=== PATIENT | female | born 1985 | race Caucasian/White ===

== ENCOUNTER → 2016-05-15 | Outpatient (REF) | payer MEDICAID ==
[~2016-05-15] MED LIST: ACET50TA PO; IBUP60TA PO; VITAPRTA PO
== END ==
LOC: M LABDRAW1 16:58
PROVIDERS: ATTEND Physician Assistant Medical
DX: E03.9 Hypothyroidism, unspecified (principal)

== ENCOUNTER → 2016-09-16 | Outpatient (REF) | payer MEDICAID, OTHER ==
[2016-09-16 16:11] LABS: BASO % 0.7 % (0.0-1.0); EOS % 0.8 % (0.0-3.0); LYMPH # 2.4 K/mm3 (1.5-4.5); LYMPH % 36.7 % (24.0-44.0); MEAN CORPUSCULAR HEMOGLOBIN 30.8 pg (27.0-33.0); MEAN CORPUSCULAR HGB CONC 33.8 g/dl (32.0-36.5); MEAN CORPUSCULAR VOLUME 91.1 fl (80.0-96.0); MONO # 0.4 K/mm3 (0.0-0.8); MONO % 6.6 % (0.0-5.0); NEUTROPHILS # 3.5 K/mm3 (1.8-7.7); NEUTROPHILS % 53.5 % (36.0-66.0); RED CELL DISTRIBUTION WIDTH 12.7 % (11.5-14.5); WHITE BLOOD COUNT 6.5 K/mm3 (4.0-10.0)
[2016-09-16 16:22] LABS: ALBUMIN 4.2 GM/DL (3.2-5.2); ALBUMIN/GLOBULIN RATIO 1.35 (1.00-1.93); ALKALINE PHOSPHATASE 78 U/L (45-117); ALT/SGPT 20 U/L (12-78); ANION GAP 6 MEQ/L (8-16); AST/SGOT 10 U/L (15-37); BILIRUBIN,TOTAL 0.5 MG/DL (0.2-1.0); BLOOD UREA NITROGEN 13 MG/DL (7-18); CALCIUM LEVEL 8.8 MG/DL (8.5-10.1); CARBON DIOXIDE LEVEL 27 MEQ/L (21-32); CHLORIDE LEVEL 108 MEQ/L (98-107); CHOLESTEROL LEVEL 168 MG/DL (<200); GLOMERULAR FILTRATION RATE > 60.0 (>60); GLUCOSE, FASTING 93 MG/DL (70-105); POTASSIUM SERUM 3.9 MEQ/L (3.5-5.1); SODIUM LEVEL 141 MEQ/L (136-145); TOTAL PROTEIN 7.3 GM/DL (6.4-8.2); TRIGLYCERIDES LEVEL 105 MG/DL (<150)
== END ==
LOC: M LABDRAW1 15:27
PROVIDERS: ATTEND Physician Assistant Medical
DX: E78.2 Mixed hyperlipidemia (principal); E55.9 Vitamin D deficiency, unspecified; E03.9 Hypothyroidism, unspecified

== ENCOUNTER → 2017-02-03 | Outpatient (REF) | payer OTHER ==
[2017-02-03 13:55] LABS: BASO # 0.1 10^3/uL (0.0-0.2); BASO % 0.9 % (0.0-1.0); EOS # 0.1 10^3/uL (0.0-0.50); EOS % 1.1 % (0.0-3.0); IMMATURE GRANULOCYTE % 0.4 % (0-0); LYMPH # 2.7 10^3/uL (1.5-4.5); LYMPH % 39.4 % (24.0-44.0); MEAN CORPUSCULAR HEMOGLOBIN 29.4 pg (27.0-33.0); MEAN CORPUSCULAR HGB CONC 32.9 g/dl (32.0-36.5); MEAN CORPUSCULAR VOLUME 89.4 fl (80.0-96.0); MONO # 0.6 10^3/uL (0.0-0.8); MONO % 8.9 % (0.0-5.0); NEUTROPHILS # 3.4 10^3/uL (1.8-7.7); NEUTROPHILS % 49.3 % (36.0-66.0); PLATELET COUNT, AUTOMATED 310 10^3/uL (150-450); RED CELL DISTRIBUTION WIDTH 12.5 % (11.5-14.5)
[2017-02-03 14:15] LABS: ALBUMIN 4.2 GM/DL (3.2-5.2); ALBUMIN/GLOBULIN RATIO 1.35 (1.00-1.93); ALKALINE PHOSPHATASE 86 U/L (45-117); ALT/SGPT 26 U/L (12-78); ANION GAP 7 MEQ/L (8-16); AST/SGOT 11 U/L (7-37); BILIRUBIN,TOTAL 0.5 MG/DL (0.2-1.0); BLOOD UREA NITROGEN 15 MG/DL (7-18); CALCIUM LEVEL 8.7 MG/DL (8.5-10.1); CARBON DIOXIDE LEVEL 28 MEQ/L (21-32); CHLORIDE LEVEL 106 MEQ/L (98-107); CHOLESTEROL LEVEL 164 MG/DL (<200); CREATININE FOR GFR 0.59 MG/DL (0.55-1.02); GLOMERULAR FILTRATION RATE > 60.0 (>60); GLUCOSE, FASTING 98 MG/DL (70-105); POTASSIUM SERUM 4.3 MEQ/L (3.5-5.1); SODIUM LEVEL 141 MEQ/L (136-145); T UPTAKE 35 % (30-39); TOTAL PROTEIN 7.3 GM/DL (6.4-8.2); TRIGLYCERIDES LEVEL 145 MG/DL (<150)
== END ==
LOC: M LABDRAW1 10:12
PROVIDERS: ATTEND Physician Assistant Medical
DX: E03.9 Hypothyroidism, unspecified (principal); E78.2 Mixed hyperlipidemia; E55.9 Vitamin D deficiency, unspecified

== ENCOUNTER → 2017-05-25 | Outpatient (CLI) | payer OTHER ==
[2017-05-25 17:41] LABS: THYROID STIMULATING HORMONE 0.668 uIU/ML (0.358-3.740)
== END ==
LOC: M LAB 16:28
DX: E03.9 Hypothyroidism, unspecified (principal)
CPT/HCPCS: 84443

== ENCOUNTER → 2017-08-04 | Outpatient (CLI) | payer OTHER ==
[2017-08-04 10:54] LABS: FREE T4 1.09 NG/DL (0.76-1.46)
== END ==
LOC: M LAB 09:42
DX: E03.9 Hypothyroidism, unspecified (principal)
CPT/HCPCS: 84443

== ENCOUNTER → 2017-08-11 | Outpatient (CLI) | payer OTHER ==
[2017-08-11 12:02] LABS: BASO # 0.1 10^3/uL (0.0-0.2); BASO % 0.6 % (0.0-1.0); EOS % 0.4 % (0.0-3.0); HEMATOCRIT 41.5 % (36.0-47.0); HEMOGLOBIN 14.3 g/dl (12.0-15.5); IMMATURE GRANULOCYTE % 0.4 % (0-3.0); LYMPH # 2.7 10^3/uL (1.5-4.5); LYMPH % 26.6 % (24.0-44.0); MEAN CORPUSCULAR HEMOGLOBIN 30.4 pg (27.0-33.0); MEAN CORPUSCULAR HGB CONC 34.5 g/dl (32.0-36.5); MEAN CORPUSCULAR VOLUME 88.3 fl (80.0-96.0); MONO # 0.7 10^3/uL (0.0-0.8); MONO % 7.3 % (0.0-5.0); NEUTROPHILS # 6.5 10^3/uL (1.8-7.7); NEUTROPHILS % 64.7 % (36.0-66.0); PLATELET COUNT, AUTOMATED 286 10^3/uL (150-450); RED CELL DISTRIBUTION WIDTH 12.9 % (11.5-14.5)
[2017-08-11 12:25] LABS: FREE T4 1.07 NG/DL (0.76-1.46)
[2017-08-11 13:33] LABS: CHLAMYDIA DNA AMPLIFICATION NEGATIVE (NEGATIVE); GC DNA AMPLIFICATION NEGATIVE (NEGATIVE)
[2017-08-12 08:35] LABS: RUBELLA IgG QUALITATIVE IMMUNE (IMMUNE)
[2017-08-12 08:46] LABS: HBsAg Prenatal NEGATIVE (NEGATIVE)
[2017-08-12 09:05] LABS: HIV 1&2 SCREEN CENTAUR NEGATIVE (NEGATIVE)
[2017-08-12 09:05] LABS: HEPATITIS C VIRUS ABY INDEX < 0.0 INDEX (<0.8)
== END ==
LOC: M SMT 10:29
DX: Z34.81 Encounter for supervision of other normal pregnancy, first trimester (principal); Z3A.09 9 weeks gestation of pregnancy
CPT/HCPCS: 84443

== ENCOUNTER → 2017-09-03 | Outpatient (CLI) | payer OTHER ==
[2017-09-03 16:00] LABS: FREE T4 0.97 NG/DL (0.76-1.46)
== END ==
LOC: M LAB 15:10
DX: E03.9 Hypothyroidism, unspecified (principal)
CPT/HCPCS: 84443

== ENCOUNTER → 2017-10-05 | Outpatient (CLI) | payer OTHER ==
[2017-10-05 16:28] LABS: FREE T4 1.02 NG/DL (0.76-1.46)
== END ==
LOC: M LAB 15:34
DX: E03.9 Hypothyroidism, unspecified (principal)
CPT/HCPCS: 84443

== ENCOUNTER → 2017-10-13 | Outpatient (CLI) | payer OTHER | LOC: M RAD 09:04 | DX: Z34.82 Encounter for supervision of other normal pregnancy, second trimester (principal); Z36.89 Encounter for other specified antenatal screening; Z3A.18 18 weeks gestation of pregnancy | CPT/HCPCS: 76811 ==

== ENCOUNTER → 2017-11-20 | Outpatient (CLI) | payer OTHER ==
[2017-11-20 16:16] LABS: FREE T4 0.88 NG/DL (0.76-1.46)
== END ==
LOC: M LAB 14:19
DX: E03.9 Hypothyroidism, unspecified (principal)
CPT/HCPCS: 84443

== ENCOUNTER → 2017-12-15 | Outpatient (CLI) | payer OTHER ==
[2017-12-15 14:05] LABS: BASO # 0.1 10^3/uL (0.0-0.2); BASO % 0.5 % (0.0-1.0); EOS # 0.1 10^3/uL (0.0-0.50); EOS % 0.5 % (0.0-3.0); HEMATOCRIT 38.8 % (36.0-47.0); IMMATURE GRANULOCYTE % 0.8 % (0-3.0); LYMPH # 2.2 10^3/uL (1.5-4.5); LYMPH % 19.8 % (24.0-44.0); MEAN CORPUSCULAR HEMOGLOBIN 31.3 pg (27.0-33.0); MEAN CORPUSCULAR HGB CONC 33.5 g/dl (32.0-36.5); MEAN CORPUSCULAR VOLUME 93.3 fl (80.0-96.0); MONO # 0.6 10^3/uL (0.0-0.8); MONO % 5.2 % (0.0-5.0); NEUTROPHILS % 73.2 % (36.0-66.0); PLATELET COUNT, AUTOMATED 267 10^3/uL (150-450); RED BLOOD COUNT 4.16 10^6/uL (4.00-5.40); RED CELL DISTRIBUTION WIDTH 12.9 % (11.5-14.5); WHITE BLOOD COUNT 10.9 10^3/uL (4.0-10.0)
[2017-12-15 14:37] LABS: GLUCOSE CHALLENGE TEST 1 HOUR 114 MG/DL (LESS THAN 140)
== END ==
LOC: M SMT 09:47
DX: Z36.89 Encounter for other specified antenatal screening (principal)
CPT/HCPCS: 82950

== ENCOUNTER → 2017-12-15 | Outpatient (CLI) | payer OTHER ==
[2017-12-15 14:28] LABS: FREE T4 1.02 NG/DL (0.76-1.46)
== END ==
LOC: M SMT 09:51
DX: E03.9 Hypothyroidism, unspecified (principal)
CPT/HCPCS: 84443

== ENCOUNTER → 2018-01-22 | Outpatient (CLI) | payer OTHER ==
[2018-01-22 17:10] LABS: FREE T4 1.14 NG/DL (0.76-1.46)
== END ==
LOC: M LAB 15:30
DX: E03.9 Hypothyroidism, unspecified (principal)
CPT/HCPCS: 84443

== ENCOUNTER → 2018-02-16 | Outpatient (REF) | payer OTHER ==
[~2018-02-16] MED LIST changes: -ACET50TA PO; +MAPA500T17 PO
== END ==
LOC: M LAB REF 17:29
PROVIDERS: ATTEND Advanced Practice Midwife
DX: Z34.83 Encounter for supervision of other normal pregnancy, third trimester (principal)

== ENCOUNTER 2018-03-08 05:53 | Inpatient (IN) | payer OTHER ==
[2018-03-08] VITALS (43 sets, daily range): BP systolic 96–187; BP diastolic 50–99
[~2018-03-08] VITALS: Ht 157.5 cm; Wt 105.0 kg
[~2018-03-08 05:53] MED LIST changes: -MAPA500T17 PO; +MAPA500T2 PO
[2018-03-08] MEDS ORDERED: LEVO200T4 PO (06:56)
[2018-03-08 07:10] LABS: HEMATOCRIT 37.5 % (36.0-47.0); HEMOGLOBIN 12.7 g/dl (12.0-15.5); MEAN CORPUSCULAR HEMOGLOBIN 30.2 pg (27.0-33.0); MEAN CORPUSCULAR HGB CONC 33.9 g/dl (32.0-36.5); MEAN CORPUSCULAR VOLUME 89.1 fl (80.0-96.0); PLATELET COUNT, AUTOMATED 284 10^3/uL (150-450); RED BLOOD COUNT 4.21 10^6/uL (4.00-5.40); WHITE BLOOD COUNT 15.4 10^3/uL (4.0-10.0)
[2018-03-08] MEDS: miSOPROStol 50 MCG 1/2 TAB (S0191) PO SCH ×2 (08:19→12:26)
[2018-03-08] MEDS ORDERED: LACTATED RINGER'S 1000 ML IV STA (13:15)
[2018-03-08] MEDS ORDERED: LR 1,000 ML IV SCH (13:15)
[2018-03-08] MEDS ORDERED: OXYTOCIN 30 UNITS IN 0.9% NaCl 500ML IV BAG (J2590) As Ordered ONE (16:56)
--- NOTE | 2018-03-08 17:05 | IPNPDOC ---
Obstetrical Progress Note Date of Service Mar 08, 2018 Subjective Patient reports she is feeling contractions but they aren't painful but more like cramping. Objective Vital Signs Date Time Temp Pulse Resp B/P (MAP) Pulse Ox O2 Delivery O2 Flow Rate FiO2 03/08/18 15:47 99.4 03/08/18 14:43 77 18 128/71 (90) Assessment Heart Rate (FHR): 130 Variability: Moderate Accelerations: Positive Heart Rate Tracing: Category I Tocometer Contractions: Yes Frequency: regular, other (2-4 minutes apart) Sterile Vaginal Examination Dilation: 1cm Effacement (%): 50% Station: -2 Cervical Consistency: Soft Cervical Position: Anterior Postion/Presentation: Cephalic presentation Assessment and Plan Age: 32 : 33 Term: 3 Pre-term: 0 Abortions: 1 Livin EGA at Admission: 39.1 Status: Reassuring Group B Streptococcus: Negative Anticipate: Vaginal Delivery Additional Comments Cooks bulb placed with 50 cc in the uterine bulb and 30 cc in the vaginal bulb. Patient tolerated well. IV Pitocin to be started per order. SHAWNEE SHEETS CNM Mar 08, 2018 17:05
[2018-03-08] MEDS ORDERED: OXYTOCIN DRIP 30 UNITS in APPROPRIATE DILUENT 1 EA IV SCH (17:15)
--- NOTE | 2018-03-08 18:45 | HPE ---
DATE OF ADMISSION: 03/08/2018 HISTORY OF PRESENT ILLNESS: Monica is a 32-year-old female who is a 5, para 3-0-1-3, at 39 weeks and 1 day with an estimated day of delivery (GUMARO) of 03/14/2018, based off of her last menstrual cycle. Her has been complicated by hypothyroidism. She is currently taking 200 mcg of levothyroxine. She presents to labor and delivery for an induction of labor. She reports active movement. She denies vaginal bleeding, leaking of fluid or contractions. ALLERGIES: No known drug allergies. CURRENT MEDICATIONS: - levothyroxine 200 mcg - Zantac 150 mg by mouth twice a day HEIGHT: 5 feet, 2 inches. WEIGHT: 225 pounds. PREPREGNANCY WEIGHT: 200 pounds. TOTAL WEIGHT GAIN DURING : 25 pounds. PAST MEDICAL HISTORY: 1. Hypothyroidism. 2. Obesity. 3. Abnormal PAP smears. 4. History of varicella as a child. SURGICAL HISTORY: No surgical history. FAMILY HISTORY: An aunt and cousin with hypothyroidism. OBSTETRICAL HISTORY: Child one: Date of : April 2002 with a gestational age of 42 weeks, weighing 9 pounds 4 ounces, male, normal spontaneous vaginal delivery, epidural, vacuum-assisted delivery. July 2007 at 41 weeks, male, weighing 8 pounds 7 ounces, normal spontaneous vaginal delivery, epidural, no complications. November 2013 at 40 weeks, weighing 9 pounds 4 ounces, a male, with a normal spontaneous vaginal delivery and no anesthesia or epidural used, no complications. SOCIAL HISTORY: Patient is . She denies any use of tobacco products, alcohol products or illicit recreational drugs. She denies a history of sexually transmitted diseases. She denies a history of any abuse, either emotional, physical or sexual. PHYSICAL EXAMINATION: GENERAL: Alert and oriented times three. ABDOMEN: Gravid. Nontender to touch. FETUS: Cephalic presentation by vaginal exam and Drew's. CARDIAC: Regular rate and rhythm. RESPIRATORY: Bilateral lungs are clear to auscultation, with no use of accessory muscles. EXTREMITIES: +1 pitting edema in feet and ankles. VITAL SIGNS: Temperature 98.4, pulse 108, respiratory rate 16, blood pressure 128/95. PATIENT'S LABS: Her blood type is A positive. Rubella status is immune. VDRL is nonreactive. Urine culture with no growth. Hepatitis B surface antigen is negative. HIV is negative. Hepatitis C is negative. Gonorrhea negative. Chlamydia negative. Her initial hemoglobin and hematocrit levels were 14.3 and 41.5. Her initial thyroid stimulating hormone (TSH) is 1.450 and her Free T4 is 1.07. Her one hour glucose tolerance test is 114 and her hemoglobin and hematocrit at the time of her one hour glucose test is 13.0 and 38.8. Her group B Streptococcus (GBS) is negative. VAGINAL EXAMINATION: /-3, anterior, moderate, scant bleeding. ASSESSMENT: heart rate: 120 beats per minute. Durability: Moderate. Accelerations: Positive. Decelerations: None. Contractions: Occasional. ASSESSMENT: Intrauterine (IUP) at 39.1 weeks gestation. Group B Streptococcus (GBS) negative. Elective induction of labor. Category 1 heart rate tracing. PLAN: Admit to labor and delivery Out of bed ad margarita. Diet: Regular. Labs and intravenous (IV) per unit protocol. Cytotec ordered for cervical ripening. Anesthesia consult per patient's request. Anticipate cervical ripening.
[2018-03-08] MEDS ORDERED: FENTANYL 2MCG/ML ROPIVACAINE 0.2% IN 0.9% NACL 100ML IVBAG As Ordered ONE (21:00)
[2018-03-08] MEDS ORDERED: ONDANSETRON 4MG/2ML VIAL (J2405) As Ordered ONE (21:32)
[2018-03-08] MEDS ORDERED: FENTANYL/ROPIVACAINE/NACL BAG 100 ML EPIDURAL SCH (22:00)
[2018-03-08] MEDS ORDERED: EPIDURAL/PCA KEYS XX PRN (22:00)
[2018-03-08] MEDS ORDERED: ePHEDrine SULFATE 25 MG/5 ML(5MG/ML) SYRINGE IV PRN (22:00)
[2018-03-08] MEDS ORDERED: EPIDURAL COMMENT XX SCH (22:00)
[2018-03-08] MEDS ORDERED: diphenhydrAMINE INJ 50MG/ML VIAL (J1200) IV PRN (22:00)
[2018-03-08] MEDS ORDERED: REFRIGERATOR IV KEYS XX PRN (22:00)
[2018-03-08] MEDS ORDERED: LACTATED RINGER'S 1000 ML IV PRN (22:00)
[2018-03-08] MEDS ORDERED: ONDANSETRON 4MG/2ML VIAL (J2405) IV PRN (22:00)
[2018-03-08] MEDS ORDERED: NALOXONE INJ 0.4 MG/1 ML VIAL (J2310) IV PRN (22:00)
[2018-03-08 22:32] LABS: HEMATOCRIT 35.8 % (36.0-47.0); HEMOGLOBIN 11.7 g/dl (12.0-15.5); MEAN CORPUSCULAR HEMOGLOBIN 29.4 pg (27.0-33.0); MEAN CORPUSCULAR HGB CONC 32.7 g/dl (32.0-36.5); MEAN CORPUSCULAR VOLUME 89.9 fl (80.0-96.0); PLATELET COUNT, AUTOMATED 255 10^3/uL (150-450); RED BLOOD COUNT 3.98 10^6/uL (4.00-5.40); WHITE BLOOD COUNT 17.4 10^3/uL (4.0-10.0)
[2018-03-08 22:58] LABS: ALT/SGPT 13 U/L (12-78); BILIRUBIN,TOTAL 0.3 MG/DL (0.2-1.0); CREATININE FOR GFR 0.57 MG/DL (0.55-1.30); GLOMERULAR FILTRATION RATE > 60.0 (>60); LDH LACTATE DEHYDROGENASE 146 U/L (84-246); URIC ACID 4.6 MG/DL (2.6-6.0)
[2018-03-09] VITALS (12 sets, daily range): BP systolic 116–170; BP diastolic 56–110
[2018-03-09] MEDS ORDERED: OXYTOCIN DRIP 30 UNITS in APPROPRIATE DILUENT 1 EA IV SCH (03:08)
[2018-03-09] MEDS ORDERED: DOCUSATE SODIUM 100 MG CAP PO PRN (03:15)
[2018-03-09] MEDS ORDERED: ACETAMINOPHEN 500 MG TAB PO PRN (03:15)
[2018-03-09] MEDS ORDERED: RHOGAM 300 MCG (1500 IU) INJ (J2790) IM SCH (03:15)
[2018-03-09] MEDS ORDERED: MEASLES,MUMPS,RUBELLA VACCINE INJ (MMR-II) (90707) SC SCH (03:15)
[2018-03-09] MEDS ORDERED: METHYLERGONOVINE MALEATE 0.2 MG TAB PO PRN (03:15)
[2018-03-09] MEDS ORDERED: DIBUCAINE 1% OINTMENT 30GM TOP PRN (03:15)
--- NOTE | 2018-03-09 03:17 | DNPDOC ---
[facility] Delivery Note Delivery Note DATE OF DELIVERY: 03/09/2018 at 0238 PREDELIVERY DIAGNOSIS: 39-2/7 weeks' gestation and labor. POST DELIVERY DIAGNOSIS: Delivered. PROCEDURE: Spontaneous vaginal delivery. CHILD DEVELOPMENT TEACHER: Shawnee Stanley CNM, JAN ANESTHESIA: epidural ESTIMATED BLOOD LOSS: 200 mL. FINDINGS: 6 pounds 12 ounces; 3070 grams; female , Score 9/9, nuchal cord times 1 tight. DELIVERY SUMMARY: Patient is a 32-year-old female who is now a who presented to L&D for an elective induction of labor. She received 2 doses of cytotec, a hernadez bulb, and IV Pitocin for induction. The patient requested an epidural for pain management. She progressed to fully dilated at 0231 and pushed to a living female in the ANDREA position with restitution to ROT at 0238. The nuchal cord was noted. The anterior shoulder delivered with ease and the corpus immediately followed. The cord was not reduced prior to delivery. The baby was placed [id number] with patient and was active and crying with stimulation. The cord was clamped x2 after 2 minutes and cut by the FOB. A 3- vessel cord was noted. The placenta delivered spontaneously and intact at 0244. Uterine hemostasis was achieved via rapid infusion of IV Pitocin and fundal massage. The perineum and vagina were inspected to found to have a perineal abrasion that was not repaired. Mom plans to name her "Palak." Her plan is to breastfeed. Both mom and baby are in stable condition. SHAWNEE STANLEY CNM Mar 09, 2018 03:17
[2018-03-09] MEDS: IBUPROFEN 800 MG TAB PO PRN ×2 (05:29→14:56)
[2018-03-09] MEDS: LEVOTHYROXINE 100MCG TABLET (0.1MG) PO SCH (06:04)
[2018-03-09] MEDS: PRENATAL VITAMINS CHEWABLE TABLET PO SCH (08:45)
[2018-03-10] MEDS: IBUPROFEN 800 MG TAB PO PRN (02:29)
[2018-03-10 05:24] VITALS: BP 118/74
[2018-03-10] MEDS: LEVOTHYROXINE 100MCG TABLET (0.1MG) PO SCH (05:54)
[2018-03-10] MEDS: PRENATAL VITAMINS CHEWABLE TABLET PO SCH (08:41)
[2018-03-10] MEDS ORDERED: MAPA500T2 PO (09:38)
[2018-03-10] MEDS ORDERED: IBUP-1114 PO (09:39)
== END 2018-03-10 11:25 | disposition home or self-care (01) | DRG 560 ==
LOC: M LDI 05:53 → M OBS 03-09 05:30
PROVIDERS: ADMIT Obstetrics & Gynecology; ATTEND Advanced Practice Midwife
PROC: 3E0P7GC Introduction of Other Therapeutic Substance into Female Reproductive, Via Natural or Artificial Opening (ICD-10-PCS; 2018-03-08)
PROC: 10E0XZZ Delivery of Products of Conception, External Approach (ICD-10-PCS; principal; 2018-03-09)
DX: O99.284 Endocrine, nutritional and metabolic diseases complicating childbirth (principal); E66.9 Obesity, unspecified; E03.9 Hypothyroidism, unspecified; Z68.36 Body mass index [BMI] 36.0-36.9, adult; Z3A.39 39 weeks gestation of pregnancy; Z37.0 Single live birth; O99.214 Obesity complicating childbirth

== ENCOUNTER → 2018-05-10 | Outpatient (CLI) | payer OTHER ==
[~2018-05-10] MED LIST changes: +IBUP-1114 PO; +LEVO200T4 PO
[2018-05-10 15:40] LABS: FREE T4 1.27 NG/DL (0.76-1.46); THYROID STIMULATING HORMONE 0.027 uIU/ML (0.358-3.740)
== END ==
LOC: M LAB 14:24
PROVIDERS: ATTEND Nurse Practitioner Family
DX: E03.9 Hypothyroidism, unspecified (principal)

== ENCOUNTER → 2018-07-09 | Outpatient (CLI) | payer OTHER ==
[~2018-07-09] MED LIST changes: +IBUP600T42 PO; -IBUP60TA PO
[2018-07-09 15:34] LABS: FREE T4 1.09 NG/DL (0.76-1.46); THYROID STIMULATING HORMONE 0.39 uIU/ML (0.358-3.740)
== END ==
LOC: M LAB 13:22
PROVIDERS: ATTEND Nurse Practitioner Family
DX: E03.9 Hypothyroidism, unspecified (principal)

== ENCOUNTER → 2018-11-12 | Outpatient (CLI) | payer OTHER ==
[2018-11-12 16:57] LABS: FREE T4 1.14 NG/DL (0.76-1.46); THYROID STIMULATING HORMONE 1.53 uIU/ML (0.358-3.740)
== END ==
LOC: M WUC 12:26
PROVIDERS: ATTEND Nurse Practitioner Family
DX: E03.9 Hypothyroidism, unspecified (principal)

== ENCOUNTER → 2019-05-06 | Outpatient (CLI) | payer OTHER ==
[2019-05-06 16:27] LABS: FREE T4 1.28 NG/DL (0.76-1.46); THYROID STIMULATING HORMONE 0.654 uIU/ML (0.358-3.740)
== END ==
LOC: M WUC 11:33
PROVIDERS: ATTEND Nurse Practitioner Family
DX: E03.9 Hypothyroidism, unspecified (principal)

== ENCOUNTER → 2020-05-10 | Outpatient (CLI) | payer OTHER ==
[2020-05-10 23:53] LABS: FREE T4 1.04 NG/DL (0.76-1.46); THYROID STIMULATING HORMONE 0.872 uIU/ML (0.358-3.740)
== END ==
LOC: M WUC 15:15
PROVIDERS: ATTEND Nurse Practitioner Family
DX: E03.9 Hypothyroidism, unspecified (principal)

== ENCOUNTER 2020-09-14 11:21 | Emergency (ER) | payer OTHER ==
[~2020-09-14] VITALS: Ht 157.5 cm; Wt 90.9 kg
[2020-09-14] MEDS ORDERED: LEVO137T2 PO (11:31)
[2020-09-14 14:19] LABS: BASO # 0.1 10^3/uL (0.0-0.2); EOS # 0.1 10^3/uL (0.0-0.5); EOS % 0.7 % (0.0-3.0); HEMATOCRIT 46.3 % (36.0-47.0); HEMOGLOBIN 15.1 g/dl (12.0-15.5); LYMPH # 3.3 10^3/uL (1.5-5.0); LYMPH % 34.6 % (24.0-44.0); MEAN CORPUSCULAR HEMOGLOBIN 29.3 pg (27.0-33.0); MEAN CORPUSCULAR HGB CONC 32.6 g/dl (32.0-36.5); MEAN CORPUSCULAR VOLUME 89.7 fl (80.0-96.0); MONO # 0.7 10^3/uL (0.0-0.8); MONO % 7.4 % (2.0-8.0); NEUTROPHILS # 5.3 10^3/uL (1.5-8.5); NEUTROPHILS % 55.9 % (36.0-66.0); PLATELET COUNT, AUTOMATED 327 10^3/uL (150-450); RED BLOOD COUNT 5.16 10^6/uL (4.00-5.40); WHITE BLOOD COUNT 9.6 10^3/uL (4.0-10.0)
[2020-09-14 14:48] LABS: ALBUMIN 4.3 GM/DL (3.2-5.2); ALT/SGPT 22 U/L (12-78); BILIRUBIN,DIRECT 0.1 MG/DL (0.0-0.2); BILIRUBIN,TOTAL 0.5 MG/DL (0.2-1.0); BLOOD UREA NITROGEN 12 MG/DL (7-18); CARBON DIOXIDE LEVEL 26 MEQ/L (21-32); CHLORIDE LEVEL 110 MEQ/L (98-107); CK-MB VALUE MASS < 1.0 NG/ML (<3.6); CPK CREATINE PHOSPHOKINASE 78 U/L (26-192); CREATININE FOR GFR 0.64 MG/DL (0.55-1.30); GLOMERULAR FILTRATION RATE > 60.0 (>60); GLUCOSE, FASTING 90 MG/DL (70-100); LIPASE 54 U/L (73-393); MB/CK RELATIVE INDEX 1.28 (< OR =4); POTASSIUM SERUM 4.3 MEQ/L (3.5-5.1); SODIUM LEVEL 142 MEQ/L (136-145); TOTAL PROTEIN 7.8 GM/DL (6.4-8.2); TROPONIN I < 0.02 NG/ML (< 0.10)
--- NOTE | 2020-09-14 15:02 | REP ---
INDICATION: Abdominal Pain. COMPARISON: Comparison chest x-ray November 18, 2015. TECHNIQUE: Two views.. FINDINGS: The lungs are well inflated and free of infiltrate. The pleural angles are sharp. The heart size is normal. Pulmonary vasculature is not increased. No significant bony abnormality is seen. IMPRESSION: Negative chest x-ray. <Electronically signed by Wiliam Cadena > 09/14/20 2211
[2020-09-14 15:44] LABS: FREE T4 1.11 NG/DL (0.76-1.46); THYROID STIMULATING HORMONE 0.517 uIU/ML (0.358-3.740)
[2020-09-14] MEDS ORDERED: ISOVUE-370 76% 100ML VIAL As Ordered ONE (15:52)
--- NOTE | 2020-09-14 16:51 | REP ---
INDICATION: L sided chest pain, elevated dimer, r/o PE COMPARISON: None. TECHNIQUE: CT angiography of the chest after the intravenous administration of 75 cc Isovue 370. Attention pulmonary arteries. FINDINGS: There is good visualization of the pulmonary arterial vasculature. No definite focal filling defects are seen that would be considered consistent with acute pulmonary emboli. There is decreased opacification of 1 of the left upper lobe pulmonary arteries at a directional change consistent with flow phenomena. There is no mediastinal or hilar adenopathy. There are no pleural or pericardial effusions. The imaged upper abdomen and imaged osseous structures are within normal limits. Evaluation of the lung santos shows no abnormal nodules, masses, or opacities. IMPRESSION: CT findings are within normal limits. <Electronically signed by Rayray Herbert > 09/14/20 [id number]
[2020-09-14 17:26] VITALS: BP 151/80
--- NOTE | 2020-09-15 10:48 | ECGEPIP ---
[facility] - ED Test Date: 2020-09-14 Pat Name: JOVANY NUGENT Department: Room: - Gender: Female Health Social Work Professor: CITLALI : 1985 Requested By: JESS Fuller Order Number: [id number] Reading MD: Veronique Callejas Measurements Intervals [place] Rate: 56 P: 52 ND: 174 QRS: -14 QRSD: 86 T: 36 QT: 412 QTc: 397 Interpretive Statements Sinus bradycardia delayed r progression No prior Electronically Signed on 09-15-2020 10:48:30 EDT by Veronique Callejas
== END 2020-09-14 17:27 | disposition home or self-care (01) ==
LOC: M ED 11:21
DX: R07.89 Other chest pain (principal); R00.1 Bradycardia, unspecified; E66.9 Obesity, unspecified; K21.9 Gastro-esophageal reflux disease without esophagitis; E03.9 Hypothyroidism, unspecified
CPT/HCPCS: 36415; 71046; 71275; 80048; 80076; 82550; 82553; 83690; 84439; 84443; 84702; 85025; 85379; 93005; 99284; Q9967

== ENCOUNTER → 2024-01-15 | Outpatient (CLI) | payer OTHER ==
[~2024-01-15] MED LIST changes: +LEVO137T2 PO
[2024-01-15 16:58] LABS: FREE T4 1.42 NG/DL (0.89-1.76); THYROID STIMULATING HORMONE 0.939 uIU/ML (0.55-4.78)
== END ==
LOC: M WUC 13:04
PROVIDERS: ATTEND Physician Assistant Medical
DX: E03.9 Hypothyroidism, unspecified (principal)

== ENCOUNTER → 2025-01-04 | Outpatient (CLI) | payer OTHER | LOC: M WHC 12:51 | PROVIDERS: ATTEND Physician Assistant Medical | DX: Z12.31 Encounter for screening mammogram for malignant neoplasm of breast (principal); R92.333 Mammographic heterogeneous density, bilateral breasts; R92.8 Other abnormal and inconclusive findings on diagnostic imaging of breast ==

== ENCOUNTER → 2025-01-04 | Outpatient (CLI) | payer OTHER ==
[2025-01-04 13:12] LABS: BASO # 0.1 10^3/uL (0.0-0.2); BASO % 0.7 % (0.0-1.0); EOS # 0.1 10^3/uL (0.0-0.5); EOS % 0.7 % (0.0-3.0); LYMPH # 2.5 10^3/uL (1.5-5.0); LYMPH % 35.3 % (24.0-44.0); MONO # 0.7 10^3/uL (0.0-0.8); MONO % 10.1 % (2.0-8.0); NEUTROPHILS # 3.7 10^3/uL (1.5-8.5); NEUTROPHILS % 52.9 % (36.0-66.0); PLATELET COUNT, AUTOMATED 308 10^3/uL (150-450)
[2025-01-04 13:21] LABS: ESTIMATED AVERAGE GLUCOSE 103.0 MG/DL (60-110)
[2025-01-04 13:32] LABS: ALT/SGPT 21 U/L (7.0-40); AST/SGOT 16 U/L (<34); CALCIUM LEVEL 8.7 MG/DL (8.5-10.1); CARBON DIOXIDE LEVEL 25 MMOL/L (20-31); CHLORIDE LEVEL 106 MMOL/L (98-107); CHOLESTEROL LEVEL 155 MG/DL (<200); CHOLESTEROL RISK RATIO 2.91 (<5); CREATININE FOR GFR 0.60 MG/DL (0.55-1.30); FREE T4 1.51 NG/DL (0.89-1.76); GLOMERULAR FILTRATION RATE > 90.0 (>58); LDL CHOLESTEROL 87.3 MG/DL (<100); NON-HDL-C 101.9 MG/DL; POTASSIUM SERUM 4.6 MMOL/L (3.5-5.1); SODIUM LEVEL 141 MMOL/L (136-145); TRIGLYCERIDES LEVEL 73 MG/DL (<150)
[2025-01-04 13:33] LABS: TOTAL 25(OH) VITAMIN D 24.4 NG/ML (20.0-100.0)
== END ==
LOC: M WUC 10:22
PROVIDERS: ATTEND Physician Assistant Medical
DX: Z00.00 Encounter for general adult medical examination without abnormal findings (principal); E03.9 Hypothyroidism, unspecified; E66.01 Morbid (severe) obesity due to excess calories; Z68.34 Body mass index [BMI] 34.0-34.9, adult; Z12.31 Encounter for screening mammogram for malignant neoplasm of breast; R92.333 Mammographic heterogeneous density, bilateral breasts; R92.8 Other abnormal and inconclusive findings on diagnostic imaging of breast

== ENCOUNTER → 2025-01-17 | Outpatient (CLI) | payer OTHER | LOC: M RAD 12:34 | PROVIDERS: ATTEND Physician Assistant Medical | DX: I83.891 Varicose veins of right lower extremity with other complications (principal) ==

== ENCOUNTER → 2025-01-24 | Outpatient (CLI) | payer OTHER | LOC: M WHC 15:53 | PROVIDERS: ATTEND Physician Assistant Medical | DX: Z12.31 Encounter for screening mammogram for malignant neoplasm of breast (principal) ==